=== PATIENT | male | born 1980 | race Caucasian/White ===

== ENCOUNTER 2023-02-16 06:19 | Day surgery (SDC) | payer BC ==
[2023-02-16] MEDS ORDERED: Lactated Ringers 1,000 ML IV SCH (07:00)
[2023-02-16] MEDS ORDERED: fentaNYL 100 MCG/2 ML SDV ONE (07:43)
[2023-02-16] MEDS ORDERED: Propofol 200 MG/20 ML SDV ONE ×2 (07:43→07:54)
== END 2023-02-16 09:47 | disposition home or self-care (01) ==
LOC: VM.SDS 06:19
PROVIDERS: ATTEND Student in an Organized Health Care Education/Training Program
DX: Z12.11 Encounter for screening for malignant neoplasm of colon (principal); I10 Essential (primary) hypertension; E78.00 Pure hypercholesterolemia, unspecified; K21.9 Gastro-esophageal reflux disease without esophagitis; F41.9 Anxiety disorder, unspecified; F32.A Depression, unspecified; G89.29 Other chronic pain; M54.50 Low back pain, unspecified; G47.33 Obstructive sleep apnea (adult) (pediatric); M51.36 Other intervertebral disc degeneration, lumbar region; E66.01 Morbid (severe) obesity due to excess calories; Z79.899 Other long term (current) drug therapy; Z88.8 Allergy status to other drugs, medicaments and biological substances; Z87.891 Personal history of nicotine dependence
CPT/HCPCS: 00812 ×2; 45378; J2704 ×2; J3010; J7120